=== PATIENT | male | born 1990 | race Caucasian/White ===

== ENCOUNTER 2021-09-18 22:51 | Emergency (ER) | payer OTHER ==
[~2021-09-18] VITALS: Ht 170.2 cm; Wt 95.5 kg
[2021-09-18 22:55] VITALS: BP 146/93
== END 2021-09-18 23:29 | disposition left against medical advice (07) ==
LOC: EMS 22:51
DX: R51.9 Headache, unspecified (principal); Z53.21 Procedure and treatment not carried out due to patient leaving prior to being seen by health care provider